=== PATIENT | female | born 1995 | race Hispanic/Latino ===

== ENCOUNTER 2018-12-29 14:42 | Emergency (ER) | payer OTHER, SELFPAY ==
[2018-12-29] MEDS ORDERED: Ibuprofen 600 MG TAB ONE (15:02)
[2018-12-29] MEDS ORDERED: Ondansetron ODT 4 MG TAB ONE (15:19)
--- NOTE | 2018-12-29 16:36 | RAD ---
TWO VIEWS CHEST: 12/29/18 PROVIDED CLINICAL HISTORY: Cough. FINDINGS: The cardiac and mediastinal silhouette is within normal limits. The lungs appear clear. No pleural fl uid or pneumothorax apparent. IMPRESSION: No evidence for an acute cardiopulmonary process. POS: OFF
== END 2018-12-29 17:55 | disposition home or self-care (01) ==
LOC: MADERS 14:42
DX: B34.9 Viral infection, unspecified (principal)
CPT/HCPCS: 71046; 87804; Q0162